=== PATIENT | female | born 1995 | race Caucasian/White ===

== ENCOUNTER 2016-10-19 03:09 | Emergency (ER) | payer MEDICAID ==
[~2016-10-19] VITALS: Ht 182.9 cm; Wt 76.4 kg
[2016-10-19 04:29] VITALS: BP 127/71
[2016-10-19] MEDS ORDERED: GuaiFENesin/D-METHORPHAN [SUGAR-FREE] 200-20MG/10 ML SYRUP UDCUP PO ONE (04:30)
[2016-10-19] MEDS ORDERED: ACETAMINOPHEN 500 MG TABLET PO ONE (04:30)
[2016-10-19] MEDS ORDERED: IBUPROFEN 600 MG TABLET PO ONE (04:30)
== END 2016-10-19 04:31 | disposition home or self-care (01) ==
LOC: EMS 03:11 → EDSEX 03:11 → EMS 04:31
DX: O26.892 Other specified pregnancy related conditions, second trimester (principal); J06.9 Acute upper respiratory infection, unspecified; Z3A.23 23 weeks gestation of pregnancy
CPT/HCPCS: 99284